=== PATIENT | male | born 1985 | race Hispanic/Latino ===

== ENCOUNTER 2016-07-29 18:10 | Emergency (ER) | payer BC | END 2016-07-29 18:47 | disposition home or self-care (01) | LOC: NAV ERS 18:10 | DX: F41.9 Anxiety disorder, unspecified (principal); R53.83 Other fatigue | CPT/HCPCS: 36416; 99283 ==

== ENCOUNTER 2017-05-09 09:48 | Emergency (ER) | payer BC ==
[2017-05-09] MEDS ORDERED: predniSONE 20 MG TAB ONE (11:03)
[2017-05-09] MEDS ORDERED: Albuterol Sulfate 2.5 mg/3 ml Neb ONE (11:03)
[2017-05-09] MEDS ORDERED: predniSONE 10 MG TAB ONE (11:03)
== END 2017-05-09 11:27 | disposition home or self-care (01) ==
LOC: NAV ERS 09:48
DX: J45.909 Unspecified asthma, uncomplicated (principal)
CPT/HCPCS: 94640; J7506; J7512; J7611; J7620